=== PATIENT | male | born 1955 | race Caucasian/White ===

== ENCOUNTER 2021-09-29 12:25 | Emergency (ER) | payer OTHER, MEDICAID ==
[~2021-09-29] VITALS: Ht 195.6 cm; Wt 82.0 kg
[2021-09-29] MEDS ORDERED: SODIUM CHLORIDE 0.9% 1,000 ML IV ONE ×2 (12:45→13:45)
[2021-09-29 13:25] LABS: Basophils # (auto) 0.1 10 ^3/uL (0-0.2); Basophils % (auto) 0.2 % (0.0-2.0); Eosinophils # (auto) 0 10 ^3/uL (0-0.8); Hematocrit 44.1 % (41.0-53.0); Hemoglobin 14.2 g/dL (13.5-17.5); Lymphocytes # (auto) 2.4 10 ^3/uL (0.4-5.4); Lymphocytes % (auto) 10.9 % (10.0-50.0); Mean Corpuscular Hemoglobin 28.1 pg (28.0-32.0); Mean Corpuscular Hgb Conc. 32.3 g/dL (32.0-36.0); Monocytes # (auto) 1.7 10 ^3/uL (0-1.3); Monocytes % (auto) 7.7 % (0.0-12.0); Neutrophils # (auto) 17.9 10 ^3/uL (1.6-8.6); Neutrophils % (auto) 81.2 % (37.0-80.0); Red Blood Cells 5.06 10^6/uL (4.5-5.90); Red Cell Distribution Width 14.5 % (11.8-14.3); White Blood Cell 22.1 10^3/uL (4.4-10.8)
[2021-09-29 13:38] LABS: Albumin 3.5 g/dL (3.4-5.0); Calcium 8.9 mg/dL (8.5-10.1); Potassium 4.4 mmol/L (3.5-5.1)
[2021-09-29] MEDS ORDERED: ONDANSETRON HCL 4 MG/2 ML VIAL ONE (13:39)
[2021-09-29] MEDS ORDERED: ONDANSETRON HCL 4 MG/2 ML VIAL IV ONE (13:45)
[2021-09-29 13:49] LABS: Bilirubin, Total 0.7 mg/dL (0.2-1.0); Total Protein 7.2 g/dL (6.4-8.2)
[2021-09-29 13:50] LABS: BUN/Creatinine Ratio 19.1
[2021-09-29] MEDS ORDERED: IOHEXOL 300 MG/ML 100ML BOTTLE IJ ONE (14:45)
[2021-09-29] MEDS ORDERED: InsuLIN REG 1unit/0.01ml Soln (100units/ml) IV ONE (16:45)
[2021-09-29 17:00] VITALS: BP 139/79
== END 2021-09-29 17:27 | disposition home or self-care (01) ==
LOC: ER 12:25 → EDBD 12:25 → ER 17:27
DX: R11.2 Nausea with vomiting, unspecified (principal); R19.7 Diarrhea, unspecified; E11.65 Type 2 diabetes mellitus with hyperglycemia
CPT/HCPCS: 36415; 36600; 74177; 80053; 82805; 85025; 93005; 96361; 96374; 96375; 99285; J1815; J2405; J7030; Q9967

== ENCOUNTER → 2022-06-07 | Emergency (ER) | payer OTHER, MEDICAID ==
[~2022-06-07] VITALS: Ht 195.6 cm; Wt 110.0 kg
[~2022-06-07] MED LIST: MORPHINE SULFATE 4 MG/ML SYR/VIAL IV ONE; ONDANSETRON HCL 4 MG/2 ML VIAL IV ONE; OXYCODONE W/ ACETAMINOPHEN 5/325MG TABLET PO ONE; PERCOT PO
[2022-06-07 20:15] LABS: Hematocrit 39.9 % (41.0-53.0); Hemoglobin 13.7 g/dL (13.5-17.5); Mean Corpuscular Hemoglobin 29.3 pg (28.0-32.0); Mean Corpuscular Hgb Conc. 34.2 g/dL (32.0-36.0); Mean Corpuscular Volume 85.6 fL (80.0-100.0); Red Blood Cells 4.66 10^6/uL (4.5-5.90); Red Cell Distribution Width 16.1 % (11.8-14.3); White Blood Cell 10.7 10^3/uL (4.4-10.8)
[2022-06-07 20:21] LABS: Band Neutrophils % (manual) 0; Basophils % (manual) 0 (0.0-2.0); Blast Cells 0; Metamyelocytes % 0; Myelocytes % 0; Promyelocytes % 0; Reactive Lymphocytes 0
[2022-06-07 20:30] LABS: Albumin 2.7 g/dL (3.4-5.0); BUN/Creatinine Ratio 26.6 (10.0-20.0); Calcium 8.7 mg/dL (8.5-10.1); Potassium 3.7 mmol/L (3.5-5.1)
[2022-06-07 20:32] LABS: Bilirubin, Total 0.2 mg/dL (0.2-1.0); Total Protein 5.8 g/dL (6.4-8.2)
[2022-06-07 20:51] LABS: Eosinophils % (manual) 1 (0-7); Lymphocytes % (manual) 33 (10.0-50.0); Monocytes % (manual) 16 (0-12)
[2022-06-08 03:00] VITALS: BP 130/63
== END | disposition home or self-care (01) ==
LOC: EDUNIT# 19:25 → ER 19:37 → EDBD 19:37
DX: S50.12XA Contusion of left forearm, initial encounter (principal); I10 Essential (primary) hypertension; E11.9 Type 2 diabetes mellitus without complications; R07.89 Other chest pain; E78.5 Hyperlipidemia, unspecified; R51.9 Headache, unspecified; E88.09 Other disorders of plasma-protein metabolism, not elsewhere classified; E86.0 Dehydration; R79.89 Other specified abnormal findings of blood chemistry; V43.52XA Car driver injured in collision with other type car in traffic accident, initial encounter; Y93.89 Activity, other specified; Y92.488 Other paved roadways as the place of occurrence of the external cause; Y99.8 Other external cause status
CPT/HCPCS: 36415; 70450; 71260; 72125; 74177; 80053; 84484; 85007; 85027; 93005; 96374; 96375; 99285; J2270; J2405

== ENCOUNTER 2023-03-02 13:34 | Emergency (ER) | payer OTHER, MEDICAID ==
[~2023-03-02 13:34] MED LIST changes: -MORPHINE SULFATE 4 MG/ML SYR/VIAL IV ONE; -ONDANSETRON HCL 4 MG/2 ML VIAL IV ONE; -OXYCODONE W/ ACETAMINOPHEN 5/325MG TABLET PO ONE
== END 2023-03-02 18:28 | disposition left against medical advice (07) ==
LOC: ER 13:34
DX: M79.669 Pain in unspecified lower leg (principal); Z53.21 Procedure and treatment not carried out due to patient leaving prior to being seen by health care provider